=== PATIENT | female | born 1995 | race Caucasian/White ===

== ENCOUNTER 2022-10-24 20:57 | Emergency (ER) | payer BC ==
[~2022-10-24] VITALS: Ht 162.6 cm; Wt 68.0 kg
--- OUTSIDE RECORDS SUMMARY | 2022-10-24 20:59 | XMS ---
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 Marcie VISIT COUNT (12 MO.) 1 SERGIO Peres TOTAL 1 NOTE: Visits indicate total known visits. ED/UCC VISIT TRACKING (12 MO.) 10/24/2022 20:[address] [facility] TYPE: Emergency COMPLAINT: - COLD SYMPTOMS, SOB INPATIENT VISIT TRACKING (12 MO.) No inpatient visits to display in this time frame [email or web address]
[2022-10-25] MEDS ORDERED: GUAIFEN-CODEINE10 ML PO (00:24)
[2022-10-25] MEDS ORDERED: TAMIFLU75 MG PO (00:24)
[2022-10-25] MEDS ORDERED: BENZONATATE100 MG PO (00:32)
== END 2022-10-25 00:51 | disposition home or self-care (01) ==
LOC: ED 20:57
DX: J10.1 Influenza due to other identified influenza virus with other respiratory manifestations (principal); J98.2 Interstitial emphysema; Z20.822 Contact with and (suspected) exposure to COVID-19
CPT/HCPCS: 71045; 71250; 87502; 96372; 99285-25; J1100; U0003